=== PATIENT | male | born 1955 | race Caucasian/White ===

== ENCOUNTER 2024-10-21 12:38 | Outpatient (REF) | payer MEDICARE, SELFPAY ==
[2024-10-21 15:21] LABS: HCT 45.8 % (40.0-50.0); HGB 15.4 g/dL (13.5-17.5); MCH 30.9 pg (27.0-33.0); MCHC 33.6 % (32.0-36.0); MCV 92 fL (80-95); MPV 10.6 fL (8.0-11.0); Platelet Count 213 10^3/uL (130-400); RBC 4.98 10^6/uL (4.36-5.78); RDW 12.7 % (11.8-14.1); RDW-SD 42.6 fL; WBC 5.57 10^3/uL (4.4-10.8)
[2024-10-21 15:47] LABS: ALT 19 U/L (16-63); AST 19 U/L (15-37); Albumin 3.7 g/dL (3.4-5.0); Alkaline Phosphatase 91 U/L (46-116); Anion Gap 4.1 mmol/L (3-11); BUN 12 mg/dL (7-18); Bilirubin, Total 0.9 mg/dL (0.2-1.0); CO2 31.9 mmol/L (21.0-32.0); CREATININE 0.9 mg/dL (0.70-1.30); Calcium 8.9 mg/dL (8.5-10.1); Calculated LDL 55 mg/dL (<100); Chloride 106 mmol/L (98-107); Cholesterol 111 mg/dL (<200); Estimated GFR 91.31 (mL/min/1.73m2); Glucose 108 mg/dL (74-106); HDL Cholesterol 40 mg/dL (>or=40); Potassium 4.4 mmol/L (3.5-5.1); Sodium 142 mmol/L (136-145); Total Protein 6.8 g/dL (6.4-8.2); Triglyceride 80 mg/dL (<150)
== END 2024-10-21 12:39 | disposition home or self-care (01) ==
LOC: NCHCN 12:38
PROVIDERS: PCP Internal Medicine; Visit Provider Internal Medicine
DX: I10 Essential (primary) hypertension (principal)
CPT/HCPCS: 80053; 80061; 85027